=== PATIENT | female | born 1965 | race Caucasian/White ===

== ENCOUNTER 2022-03-15 12:24 | Outpatient (CLI) | payer OTHER, SELFPAY ==
--- NOTE | ~2022-03-15 | XR_ITS ---
EXAMINATION: XR chest 2V DATE: 03/15/2022 12:46 INDICATION: Hypoxia, nicotine dependence TECHNIQUE: PA and lateral views of the chest are obtained. COMPARISON: 06/28/2017 FINDINGS: There is opacification of the left upper lobe at the site of prior pneumonia. No pleural ef fusion or pneumothorax. The cardiomediastinal silhouette is normal. There is moderate thoracic spondy losis. Bilateral breast implants are noted. IMPRESSION: 1. Left upper lobe airspace opacity which could reflect scarring from prior pneumonia however given p atient's history of tobacco use, follow-up with CT of the chest is recommended. Reviewed, dictated and finalized at location B. IMPRESSION: 1. Left upper lobe airspace opacity which could reflect scarring from prior pne umonia however given patient's history of tobacco use, follow-up with CT of the chest is recommended.
== END 2022-03-15 12:25 | disposition home or self-care (01) ==
LOC: ANHIMG 12:29
PROVIDERS: PCP Family Medicine; Visit Provider Family Medicine
DX: R06.00 Dyspnea, unspecified (principal); R09.02 Hypoxemia; F17.200 Nicotine dependence, unspecified, uncomplicated; R91.8 Other nonspecific abnormal finding of lung field
CPT/HCPCS: 71046

== ENCOUNTER 2022-04-27 12:32 | Outpatient (CLI) | payer OTHER, SELFPAY ==
--- NOTE | ~2022-04-27 | CT_ITS ---
EXAMINATION:CT diagnostic chest w con DATE: 04/27/2022 15:11 INDICATION: Left lung upper lobe mass. TECHNIQUE: Computed tomography (CT) of the chest was performed with 75 mL Omnipaque 350 intravenous c ontrast. Automated exposure control and iterative reconstruction technique were employed. The dose-le ngth product (DLP) was 146.38 mGy-cm. COMPARISON: Chest 2 views 03/15/2022 FINDINGS: There is moderate emphysema. There is mild atelectasis in right middle lobe. There are a fe w nodules in right upper lobe measuring up to 4 mm, likely benign. There is a calcified mass in left upper lobe correlating with the chest radiograph abnormality, consistent with old healed granulomatou s disease. Calcified bilateral lung nodules are consistent with old granulomatous disease. There are centrilobular nodules and airspace opacities in basilar left lower lobe, consistent with pneumonia. N o pleural effusion. The heart size is normal. No pericardial effusion. There are bilateral breast imp lants. There is moderate thoracic spondylosis. There is a chronic compression fracture of T8. IMPRESSION: 1. Calcified mass in left lung upper lobe correlating with the chest radiograph abnormality, consiste nt with old healed granulomatous disease. 2. Pneumonia in basilar left lower lobe. 3. Moderate emphysema. Reviewed, dictated and finalized at location A. IMPRESSION: 1. Calcified mass in left lung upper lobe correlating with the chest radiograph abnormality, consistent with old healed granulomatous disease. 2. Pneumonia in basilar left lower lobe. 3. Moderate emphysema.
--- NOTE | 2022-04-27 13:12 | ECHO_ITS ---
Patient Info Name: Kenyatta Long Age: 56 years : 1965 Gender: Female Ht: 62 in Wt: 89 lbs BSA: 1.32 m2 HR: 77 bpm BP: 134 / 94 mmHg Technical Quality: Fair Exam Date: 04/27/2022 2:16 PM Exam Location: [facility] Patient Status: Outpatient Admit Date: 04/27/2022 Staff Ordering Physician: Shana Pandya MD Collection Manager: Aimee Corbett RDCS Attending Provider: Ronda Ramirez PA-C Referring Physician: Mumtaz BARNES; Exam Type: CA echo doppler color flow Study Info Indications R06.00 - Dyspnea, unspecified Complete two-dimensional, color flow and Doppler transthoracic echocardiogram is performed. Summary 1. Complete two-dimensional, color flow and Doppler transthoracic echocardiogram is performed. 2. Left ventricular chamber dimension is normal. 3. Left ventricular systolic function is normal, estimated at 60-65%. 4. The left ventricular diastolic function is grade II diastolic dysfunction. 5. E/e' 12 is mildly elevated. 6. Global longitudinal strain is normal at -18.0%. 7. No pulmonary hypertension, estimated pulmonary arterial systolic pressure is 17 mmHg. Left Ventricle E/e' 12 is mildly elevated. Global longitudinal strain is normal at -18.0%. Left ventricular chamber dimension is normal. Left ventricular systolic function is normal, estimated at 60-65%. The left ventricular diastolic function is grade II diastolic dysfunction. Right Ventricle Right ventricular chamber dimension is normal. Right ventricular systolic function is normal. Left Atria Left atrial chamber dimension is normal. Right Atria Right atrial chamber dimension is normal. Aortic Valve The aortic valve is trileaflet. There is no aortic valve stenosis. There is no aortic valve regurgitation. Pulmonic Valve There is no pulmonic regurgitation. Mitral Valve There is no mitral valve stenosis. There is no mitral valve regurgitation. Tricuspid Valve There is no tricuspid valve regurgitation. No pulmonary hypertension, estimated pulmonary arterial systolic pressure is 17 mmHg. Pericardium/Pleural There is no pericardial effusion. Inferior Vena Cava Normal inferior vena cava with >50% collapse upon inspiration consistent with normal right atrial pressure, 5 mmHg. Aorta The aortic root size at the sinus of Valsalva is normal. Left Ventricular Outflow Tract Name Value Normal LVOT 2D LVOT Diameter 1.9 cm LVOT Doppler LVOT Peak Gradient 6 mmHg LVOT Mean Gradient 3 mmHg LVOT VTI 25 cm LVOT VTI/AV VTI Ratio 1.0 LVOT Stroke Volume 74 ml LVOT CO 5.4 l/min LVOT CI 4.1 l/min/m2 Pulmonic Valve Name Value Normal RVOT Doppler
--- NOTE | 2022-05-02 12:33 | WPDSIXMINUTE ---
Six Minute Walk Procedure Procedure Performed Pulmonary Stress Test (6 min walk) Six Minute Walk Six Minute Walk: This is a 6 minute walk test. The test was performed and interpreted in accordance with the 2014 ERS/ATS task force guidelines. Findings: The patient's resting room air oxygen saturation measured by pulse oximetry was 95% and heart rate was 73 bpm. Patient ambulated for 183 meters and oxygen saturation remained 90 to 95%. Heart rate at the end of the study was 88 bpm. The patient did not qualify for supplemental oxygen at rest or with ambulation. There are no prior studies for comparison.
--- NOTE | 2022-05-02 12:33 | WPDPFTINT ---
PFT Procedure Performed PFT Procedure Performed Spirometry with Pre/Post Bronchodilator Plethysmography (Lung Vol) Diffusing Cap (DLCO) Flow Vol Loop PFT Interpretation This is a pulmonary function test with pre and post-bronchodilator spirometry, plethysmography and diffusing capacity. The test was performed and results interpreted in accordance with the 2019 and 2005 ATS/ERS Task Force guidelines respectively using the Global Lung Function Initiative-2012 reference equations. Patient demonstrated good effort and cooperation. Reproducibility criteria were met. The quality of the pre bronchodilator spirometry maneuver was Grade A and post bronchodilator spirometry maneuver was Grade A. Findings: Spirometry: There is decreased maximal expiratory airflow at all lung volumes with a concave expiratory flow tracing. The contour the inspiratory flow tracing is normal. The pre bronchodilator FVC is 1.89 L, 61% predicted. The pre bronchodilator FEV1 is 0.78 L, 32% predicted. The pre bronchodilator FEV1: FVC ratio is 41%. The post bronchodilator FVC is 2.53 L, 34% predicted. The post bronchodilator FEV1 is 0.87 L, representing a 12% increase. The post bronchodilator FEV1: FVC ratio was 34%. Plethysmography: The total lung capacity is 5.79 L, 123% predicted. The functional residual capacity is 4.72 L, 179% predicted. The residual volume is 3.90 L, 222% predicted. Diffusing capacity: The diffusion capacity unadjusted for hemoglobin and carboxyhemoglobin is 9.1, 42% predicted. The diffusing capacity adjusted for alveolar volume is 2.69, 58% predicted. Impression: There is a very severe obstructive abnormality with significant improvement after inhaling a single dose of albuterol. The increase in residual volume is consistent with air trapping from an obstructive abnormality. Hyperinflation is present as demonstrated by the increase in functional residual capacity and total lung capacity and is consistent with an obstructive abnormality. The diffusing capacity unadjusted for hemoglobin and carboxyhemoglobin is moderately decreased and remains moderately decreased when adjusted for alveolar volume. There are no prior studies for comparison
== END 2022-04-27 12:33 | disposition home or self-care (01) ==
PROVIDERS: PCP Family Medicine; Visit Provider Physician Assistant
DX: R06.00 Dyspnea, unspecified (principal); R09.02 Hypoxemia; F17.210 Nicotine dependence, cigarettes, uncomplicated; J18.9 Pneumonia, unspecified organism; J43.9 Emphysema, unspecified
CPT/HCPCS: 71260; 93306; 94060; 94618; 94726; 94729; Q9967

== ENCOUNTER 2022-05-31 12:36 | Outpatient (CLI) | payer OTHER, SELFPAY ==
--- NOTE | 2022-06-04 12:52 | WPDNEUROLOGY ---
Neurology EEG Report General Information Date of Study: 05/31/22 TEST Routine EEG DIAGNOSIS Possible seizure CONDITION OF RECORDING Awake, drowsy, sleep EEG NUMBER [id number] CLINICAL HISTORY Patient reports she is having episodes of difficulty breathing, dizziness, and sometimes losing bladder control. EEG DESCRIPTION During the awake state with eyes closed the background consists of 9 Hz posterior dominant rhythm which attenuates appropriately with eye opening. The recording is continuous. Photic stimulation was performed which did not elicit any epileptiform features or seizures. There is a well developed anterior-posterior gradient. No significant asymmetries of background activities are noted. With drowsiness there is was waxing and waning of the dominant rhythm with eventual replacement by a mixture of beta, alpha, and theta activity. As the patient enters stage II sleep, symmetrical spindles and K-complexes are present. Arousal is unremarkable. There are no epileptiform discharges or seizures during this recording. IMPRESSION This is a normal routine EEG recorded in awake, drowsy, and asleep states. There are no electrographic seizures identified, nor are there any epileptiform discharges. Please note that a normal EEG cannot exclude a seizure disorder. Clinical correlation is recommended.
== END 2022-05-31 12:37 | disposition home or self-care (01) ==
PROVIDERS: PCP Family Medicine; Visit Provider Family Medicine
DX: R56.9 Unspecified convulsions (principal)
CPT/HCPCS: 95816

== ENCOUNTER 2022-05-31 12:39 | Outpatient (CLI) | payer OTHER, SELFPAY ==
--- NOTE | ~2022-05-31 | MR_ITS ---
EXAMINATION: MR brain/brain stem wo con DATE: 05/31/2022 15:45 INDICATION: Seizure. Loss of tone. TECHNIQUE: Magnetic resonance imaging (MRI) of the brain and brainstem was performed without intraven ous contrast. COMPARISON: None. FINDINGS: There are scattered areas of nonspecific increased T2-weighted signal intensity in the cere bral white matter, which is within normal limits for the patient's age. There is no intracranial hemo rrhage, acute infarction, or abnormal intracranial mass lesion. The ventricles are normal in size. Th ere is mild mucosal thickening in the paranasal sinuses. The orbits are normal. The mastoid air cells are normal. IMPRESSION: 1. Normal brain. Reviewed, dictated and finalized at location A. IMPRESSION: 1. Normal brain.
== END 2022-05-31 12:40 | disposition home or self-care (01) ==
PROVIDERS: PCP Family Medicine; Visit Provider Family Medicine
DX: R55 Syncope and collapse (principal)
CPT/HCPCS: 70551